=== PATIENT | female | born 1985 | race Caucasian/White ===

== ENCOUNTER 2023-03-27 09:39 | Emergency (ER) | payer OTHER, SELFPAY ==
[2023-03-27 09:51] VITALS: BP 129/79; PULSE 74; RESP 16; TEMP 36.4; O2SAT 100
--- NOTE | 2023-03-27 09:53 | ED.EAR ---
HPI - Ear Problem General Chief complaint: Ear Stated complaint: pain in left ear Time Seen by Provider: 03/27/23 09:53 Source: patient and RN notes reviewed Mode of arrival: ambulatory Limitations: no limitations History of Present Illness HPI Narrative: 37-year-old female presents with concern for left ear pain. Reports sharp shooting pain. She reports she had headache this started yesterday. She has taken Tylenol and Midol. She denies any significant nasal congestion, rhinorrhea, sinus pain or fever. She denies drainage from the ear or hearing change MD Complaint: ear pain Related Data Home Medications Medication Instructions Recorded Confirmed norgestimate-ethinyl estradiol 1 tablet PO DAILY 03/27/23 03/27/23 0.18 mg/0.215mg/0.25mg-35 mcg(28)tablet Allergies Allergy/AdvReac Type Severity Reaction Status Date / Time tramadol AdvReac Mild NAUSEA/VOMI Verified 03/27/23 09:50 TING Review of Systems Review of Systems: CONSTITUTIONAL: Denies malaise, chills, sweats, or fever. EYES: Denies visual changes, redness, or discharge. ENT: Denies rhinorrhea, congestion, sinus pain, and sore throat. Reports left ear pain CARDIOVASCULAR: Denies chest pain, palpitations, or edema. RESPIRATORY: Denies cough. Denies dyspnea. GASTROINTESTINAL: Denies abdominal pain, nausea, vomiting, diarrhea SKIN: Denies rash or itching. MUSCULOSKELETAL: Denies myalgia. NEUROLOGIC: Reports headache. All systems reviewed & are unremarkable except as noted in HPI and below PMFSH Comments At time of signature, agree with nursing past medical, surgical, social and family history. There is no relevant family history pertinent to the presenting complaint Exam Narrative: GENERAL: Well-appearing, well-nourished, and in no acute distress. HEAD: Normocephalic EYES: PERRLA, conjunctivae clear ENT: Nares clear, turbinates edematous, clear discharge. Mucous membranes moist. Might tM pearly mckeon with sore light reflex, left TM erythematous and full; no tragal tenderness. Oropharynx not erythematous without lesions. Tonsils not enlarged and without exudate, no drooling, no hoarseness, no trismus, uvula midline. NECK: Supple. No lymphadenopathy CHEST: Clear to auscultation, breath sounds equal. No wheezing, rhonchi, rales, or stridor. No respiratory distress, speaks in full sentences. HEART: Regular rate and rhythm. No murmur heard. SKIN: Warm, dry, no rash. NEURO: Alert and oriented x3. PSYCH: Normal mood and affect Course Course Emergency Course: Patient is aware of diagnosis, understands and agrees to treatment plan. Anticipatory guidance given. Patient agrees to follow-up as directed and is aware of reasons to seek care at the emergency department. Portions of this record may have been created with voice recognition software Level of Care: Express Care Visit Vital Signs Vital signs: Vital Signs Temperature 97.6 F 03/27/23 09:51 Pulse Rate 74 03/27/23 09:51 Respiratory Rate 16 03/27/23 09:51 Blood Pressure 129/79 03/27/23 09:51 Pulse Oximetry 100 03/27/23 09:51 Oxygen Delivery Room Air 03/27/23 09:51 Temperature 97.6 F 03/27/23 09:51 Pulse Rate 74 03/27/23 09:51 Respiratory Rate 16 03/27/23 09:51 Blood Pressure 129/79 03/27/23 09:51 Pulse Oximetry 100 03/27/23 09:51 Oxygen Delivery Room Air 03/27/23 09:51 Reviewed. Medical Decision Making MDM Narrative Medical decision making narrative: Differential diagnosis considered: Evans virus, strep pharyngitis, allergic rhinitis, upper respiratory tract infection, sinusitis, rhinosinusitis, nasopharyngitis. viral pharyngitis, otitis media, otitis externa, otitis effusion, cerumen impaction, foreign body. Exam findings show no acute concerns or changes; patient is non-toxic appearing and is in no distress. Patient is appropriate for outpatient treatment and follow-up. Vital Signs Vital Signs: Vital Signs Temperature 97.
== END 2023-03-27 10:04 | disposition home or self-care (01) ==
PROVIDERS: Emergency Provider Nurse Practitioner
DX: H66.92 Otitis media, unspecified, left ear (principal)
CPT/HCPCS: 99203; G0463

== ENCOUNTER 2023-06-06 15:43 | Emergency (ER) | payer OTHER, SELFPAY ==
--- NOTE | ~2023-06-06 | XR_ITS ---
EXAM: XR hand LT min 3V DATE: 06/06/2023 16:07 HISTORY: Hit 5th metacarpal area 5 weeks ago on counter . COMPARISON: None available. FINDINGS: Normal mineralization. No fracture or dislocation. No lytic or blastic lesion. Joint space s are maintained. No erosion or periosteal change. Soft tissues within normal limits. IMPRESSION: No acute osseous finding in the left hand. Reviewed, dictated and finalized at location K.
[2023-06-06 15:52] VITALS: BP 134/97; PULSE 75; RESP 16; TEMP 36.7; O2SAT 100
--- NOTE | 2023-06-06 16:33 | ED.GENADULT ---
HPI - General Adult General Chief complaint: Extremity Injury, Upper Stated complaint: Left Hand Injury Source: patient Mode of arrival: ambulatory Limitations: no limitations History of Present Illness HPI narrative: Patient presents for evaluation of left hand pain for last few weeks. She indicates she bumped her hand against a counter. She states she has experienced constant pain since that time. She cannot provide me with a descriptive quality to the pain but rates it 7/10 in severity. Today she was driving and strained her hand while turning the steering wheel. She has a tingling sensation in her left hand. Movement makes her symptoms worse. She is right hand dominant. Related Data Home Medications Medication Instructions Recorded Confirmed norgestimate-ethinyl estradiol 1 tablet PO DAILY 03/27/23 03/27/23 0.18 mg/0.215mg/0.25mg-35 mcg(28)tablet Allergies Allergy/AdvReac Type Severity Reaction Status Date / Time tramadol AdvReac Mild NAUSEA/VOMI Verified 03/27/23 09:50 TING Review of Systems Review of Systems: CONSTITUTIONAL: Denies fever, chills, or sweats. EYES: Denies visual changes, redness, or discharge. ENT: Denies rhinorrhea, congestion, sore throat, or otalgia. CARDIOVASCULAR: Denies chest pain, palpitations, or edema. RESPIRATORY: Denies cough or dyspnea. GASTROINTESTINAL: Denies abdominal pain, nausea, vomiting, or diarrhea. GENITOURINARY: Denies dysuria or hematuria. SKIN: Denies rash or itching. MUSCULOSKELETAL: Reports pain in the left hand. NEUROLOGIC: Reports tingling in the left hand. Denies headache, numbness, dizziness, or weakness. PSYCHIATRIC: Denies anxiety or depression. [facility] Past Medical History Medical History No pertinent past medical history Surgical History Surgical History No pertinent past surgical history Family History Family History Mother Family history non-contributory Social History Social History Smoking status: Former smoker Living arrangements: with family Gender identity (if verbalized by the patient): Female Sexual Orientation (if Verbalized by the Patient): Straight or Heterosexual Spiritual care concerns: No Exam Narrative: GENERAL: Well-appearing, well-nourished, and in no acute distress. HEAD: Normocephalic, atraumatic. EYES: PERRLA and EOMI. ENT: Nares clear, no rhinorrhea or epistaxis. Mucous membranes moist. Oropharynx without tonsillar hypertrophy exudate or other lesions. Bilateral TMs pearly mckeon nonbulging NECK: Supple. No adenopathy or masses. No carotid bruits or JVD CHEST: Clear to auscultation. No respiratory distress. No wheezes rales or rhonchi HEART: Regular rate and rhythm. No murmur heard. Normal peripheral pulses. ABDOMEN: Soft, nontender, nondistended, normal active bowel sounds. EXTREMITIES:Tenderness noted over 5th metacarpal of left hand. No obvious deformity. 5/5 hand insurance claim approver strength on right. 4/5 hand insurance claim approver strength on the left SKIN: Warm, dry, no rash. NEURO: No focal deficits. Alert and oriented x3. PSYCH: Normal mood and affect. Course Course Emergency Course: This is a 38-year-old female who presented for evaluation of left hand pain. X ray negative for fracture. Exam is consistent with contusion. Provided with finger splint. Declined analgesics upon discharge. Follow up with primary provider. Go to the ER for worsening symptoms or intractable pain. Pt in agreement with plan of care. Level of Care: Express Care Visit Vital Signs Vital signs: Vital Signs Temperature 36.7 C 06/06/23 15:52 Pulse Rate 75 06/06/23 15:52 Respiratory Rate 16 06/06/23 15:52 Blood Pressure 134/97 H 06/06/23 15:52 Pulse Oximetry 100 06/06/23 15:52
== END 2023-06-06 16:28 | disposition home or self-care (01) ==
PROVIDERS: Emergency Provider Nurse Practitioner
DX: S60.222A Contusion of left hand, initial encounter (principal); W22.09XA Striking against other stationary object, initial encounter; Z87.891 Personal history of nicotine dependence
CPT/HCPCS: 29130; 73130; 99213; G0463

== ENCOUNTER 2023-11-11 14:43 | Emergency (ER) | payer OTHER, SELFPAY ==
[2023-11-11 14:48] VITALS: BP 103/66; PULSE 85; RESP 16; TEMP 37.1; O2SAT 100
--- NOTE | 2023-11-11 15:42 | ED.GENADULT ---
HPI - General Adult General Chief complaint: Upper Respiratory Infection Stated complaint: Sore Throat/Cough Source: patient Mode of arrival: ambulatory Limitations: no limitations History of Present Illness HPI narrative: Patient presents for evaluation of sick symptoms for the last 2 days. Symptoms include postnasal drainage, sore throat, occasional cough productive of clear sputum. She denies any fever, chills, nausea, vomiting or diarrhea. 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 She smokes 1/4 ppd. She is not taking any medication to assist with her symptoms. Related Data Home Medications Medication Instructions Recorded Confirmed norgestimate-ethinyl estradiol 1 tablet PO DAILY 03/27/23 03/27/23 0.18 mg/0.215mg/0.25mg-35 mcg(28)tablet escitalopram oxalate 10 mg tablet mg 11/11/23 fluoxetine 20 mg capsule mg 11/11/23 oxybutynin chloride 15 mg mg PO 11/11/23 tablet,extended release 24 hr Allergies Allergy/AdvReac Type Severity Reaction Status Date / Time tramadol AdvReac Mild NAUSEA/VOMI Verified 11/11/23 14:46 TING Review of Systems Review of Systems: CONSTITUTIONAL: Denies fever, chills, or sweats. EYES: Denies visual changes, redness, or discharge. ENT: Reports sore throat and postnasal drainage. Denies congestion or otalgia. CARDIOVASCULAR: Denies chest pain, palpitations, or edema. RESPIRATORY:Reports cough. Denies SOB. GASTROINTESTINAL: Denies abdominal pain, nausea, vomiting, or diarrhea. GENITOURINARY: Denies dysuria or hematuria. SKIN: Denies rash or itching. MUSCULOSKELETAL: Denies back pain, joint pain, or myalgia. NEUROLOGIC: Denies headache, numbness, dizziness, or weakness. PSYCHIATRIC: Denies anxiety or depression. [facility] Past Medical History Medical History No pertinent past medical history Surgical History Surgical History No pertinent past surgical history Family History Family History Mother Family history non-contributory Social History Social History Smoking status: Former smoker Living arrangements: with family Gender identity (if verbalized by the patient): Female Sexual Orientation (if Verbalized by the Patient): Straight or Heterosexual Spiritual care concerns: No Exam Narrative: GENERAL: Well-appearing, well-nourished, and in no acute distress. HEAD: Normocephalic, atraumatic. EYES: PERRLA and EOMI. ENT: Nares clear, no rhinorrhea or epistaxis. Mucous membranes moist. Oropharynx without tonsillar hypertrophy exudate or other lesions. Bilateral TMs pearly mckeon nonbulging NECK: Supple. No adenopathy or masses. No carotid bruits or JVD CHEST: Clear to auscultation. No respiratory distress. No wheezes rales or rhonchi HEART: Regular rate and rhythm. No murmur heard. Normal peripheral pulses. ABDOMEN: Soft, nontender, nondistended, normal active bowel sounds. EXTREMITIES: Normal range of motion. No edema. SKIN: Warm, dry, no rash. NEURO: No focal deficits. Alert and oriented x3. PSYCH: Normal mood and affect. Course Course Emergency Course: This is a 38-year-old female who presented for evaluation of sick symptoms. COVID, flu, strep were all negative. Exam consistent with acute viral illness. Increase hydration. OTC agents for symptom management. Follow up with primary provider. Go to the ER for worsening symptoms. Pt in agreement with plan of care. Level of Care: Express Care Visit Vital Signs Vital signs: Vital Signs Temperature 37.1 C 11/11/23 14:48 Pulse Rate 85 11/11/23 14:48 Respiratory Rate 16 11/11/23 14:48 Blood Pressure 103/66 11/11/23 14:48 Pulse Oximetry 100 11/11/23 14:48 Oxygen Delivery Room Air 11/11/23 14:48
== END 2023-11-11 15:54 | disposition home or self-care (01) ==
PROVIDERS: Emergency Provider Nurse Practitioner
DX: B34.9 Viral infection, unspecified (principal); Z20.822 Contact with and (suspected) exposure to COVID-19; F17.200 Nicotine dependence, unspecified, uncomplicated
CPT/HCPCS: 87081; 87426; 87804; 87880; 99213; C9803; G0463

== ENCOUNTER 2024-07-08 14:25 | Emergency (ER) | payer MEDICAID, SELFPAY ==
[2024-07-08 14:32] VITALS: BP 128/77; PULSE 75; RESP 20; TEMP 36.7; O2SAT 100
--- NOTE | 2024-07-08 14:59 | ED.GENADULT ---
HPI - General Adult General Chief complaint: Upper Respiratory Infection Stated complaint: covid / flu test Time Seen by Provider: 07/08/24 14:50 Source: patient, RN notes reviewed and old records reviewed Mode of arrival: ambulatory Limitations: no limitations History of Present Illness HPI narrative: 39 year old female presents to [facility] care with complaints of intermittent low grade fevers,body aches, cough, and has felt sleepy with some nausea since Monday 5-6 days.. Patient reports that she has had known COVID exposure requesting testing for COVID and flu. Patient wants to make sure she doesn't have COVID before she returns to work tomorrow. MD complaint: intermittent fever, cough, body aches, nausea, felt sleepy Onset (ago): day(s) (5-6 days) Severity scale (1-10): 4 Quality: aching Treatments prior to arrival: other (cold med) Related Data Home Medications Medication Instructions Recorded Confirmed norgestimate-ethinyl estradiol 1 tablet PO DAILY 03/27/23 03/27/23 0.18 mg/0.215mg/0.25mg-35 mcg(28)tablet escitalopram oxalate 10 mg tablet mg 11/11/23 fluoxetine 20 mg capsule mg 11/11/23 oxybutynin chloride 15 mg mg PO 11/11/23 tablet,extended release 24 hr Allergies Allergy/AdvReac Type Severity Reaction Status Date / Time tramadol AdvReac Mild NAUSEA/VOMI Verified 11/11/23 14:46 TING Review of Systems Review of Systems: CONSTITUTIONAL: reports intermittent low grade fever, no chills, or sweats. EYES: Denies visual changes, redness, or discharge. ENT: Reports some rhinorrhea, congestion, no sore throat, or otalgia. CARDIOVASCULAR: Denies chest pain, palpitations, or edema. RESPIRATORY: Reports cough denies dyspnea. GASTROINTESTINAL: Denies abdominal pain, states some nausea, no vomiting, or diarrhea. GENITOURINARY: Denies dysuria or hematuria. SKIN: Denies rash or itching. MUSCULOSKELETAL: Denies back pain, joint pain, reports some body aches NEUROLOGIC: Denies headache, numbness, or weakness. PSYCHIATRIC: positive for anxiety or depression. All systems reviewed & are unremarkable except as noted in HPI and below PMFSH Past Medical History Medical History Anxiety and depression Surgical History Surgical History History of tonsillectomy Previous section x4 Family History Family History Mother Family history non-contributory Social History Social History Smoking status: Former smoker Living arrangements: with family Gender identity (if verbalized by the patient): Female Sexual Orientation (if Verbalized by the Patient): Straight or Heterosexual Spiritual care concerns: No Comments At time of signature, agree with nursing past medical, surgical, social and family history. There is no relevant family history pertinent to the presenting complaint Exam Narrative: GENERAL: Well-appearing, well-nourished, and in no acute distress. HEAD: Normocephalic, atraumatic. EYES: PERRLA and EOMI. ENT: Nares clear, clear rhinorrhea no epistaxis. Mucous membranes moist.TM's normal with good light reflex, throat pink tonsils absent NECK: Supple. no lymphadenopathy CHEST: Clear to auscultation. No respiratory distress. no cough noted SAO2 100% on room air HEART: Regular rate and rhythm. No murmur heard. Normal peripheral pulses. ABDOMEN: Soft, nontender, nondistended, normal active bowel sounds. EXTREMITIES: Normal range of motion. No edema. SKIN: Warm, dry, no rash. NEURO: No focal deficits. Alert and oriented x3. Course Course Emergency Course: Patient is aware of diagnosis, understands and agrees to treatment plan.? Anticipatory guidance given.? Patient agrees to follow-up as directed and is aware of reasons to seek care at the emergency depart
== END 2024-07-08 15:20 | disposition home or self-care (01) ==
PROVIDERS: Emergency Provider Registered Nurse
DX: J06.9 Acute upper respiratory infection, unspecified (principal); Z20.822 Contact with and (suspected) exposure to COVID-19; Z87.891 Personal history of nicotine dependence
CPT/HCPCS: 87426; 99212; G0463